=== PATIENT | female | born 1985 | race African-American/Black ===

== ENCOUNTER 2018-10-15 23:29 | Emergency (ER) | payer OTHER ==
[~2018-10-15] VITALS: Ht 165.1 cm; Wt 65.8 kg
--- NOTE | 2018-10-15 23:40 | NUR ---
Patient ambulated with stable gait. A/Ox4. Speech is clear, speaks in complete sentences. No neuro deficits needed. Patient came for c/o a cyst abscess near rectal area. Patient is afebrile. Respiratory even and unlabored, no cough no sob. Denies any n/v/d.
--- NOTE | 2018-10-15 23:47 | NUR ---
ERMD at bedside for MSE
--- NOTE | 2018-10-16 00:09 | NUR ---
Patient discharged to home in stable conditon. Written and verbal after care instructions given. Patient verbalizes understanding of instructions. Patient ambulated with stable gait.
[2018-10-16 00:10] VITALS: BP 110/71
== END 2018-10-16 00:12 | disposition home or self-care (01) ==
LOC: ER 23:32
DX: L05.01 Pilonidal cyst with abscess (principal); N89.8 Other specified noninflammatory disorders of vagina; K64.9 Unspecified hemorrhoids; F17.200 Nicotine dependence, unspecified, uncomplicated
CPT/HCPCS: A4663